=== PATIENT | male | born 1955 | race Caucasian/White ===

== ENCOUNTER 2020-04-26 05:59 | Day surgery (SDC) | payer OTHER ==
[2020-04-24 08:45] LABS: COVID AG,FIA SOURCE NASOPHARYNGEAL
[~2020-04-26] VITALS: Ht 188 cm; Wt 127.3 kg
[~2020-04-26 05:59] MED LIST: ALBU6.7H9 IH; ASPI-1444 PO; CHOL200016 PO; FAMO40TA7 PO; FLUT16H NASAL; FLUT220HFA IH; HYDR25TA PO; LISI40TA9 PO; MONT10TA32 PO
[2020-04-26] MEDS ORDERED: LIDOCAINE 2% 30 ML JELLY TP ONE (06:00)
[2020-04-26] MEDS ORDERED: LIDOCAINE 4% 50 ML SOLUTION TP ONE (06:00)
[2020-04-26] MEDS ORDERED: BENZOCAINE 20% 50 MCG/SPRAY 57 GM TP ONE (06:00)
[2020-04-26] MEDS ORDERED: ALBUTEROL SULFATE 2.5 MG/0.5 ML NEB SOLUTION NEB ONE (06:00)
[2020-04-26] MEDS ORDERED: SODIUM CHLORIDE 0.9% 1,000 ML IV ONE (06:30)
[2020-04-26] MEDS ORDERED: SODIUM CHLORIDE 0.9% 1,000 ML ONE (06:55)
[2020-04-26] MEDS ORDERED: MIDAZOLAM HCL 2 MG/2 ML VIAL ONE (08:02)
[2020-04-26] MEDS ORDERED: FentaNYL CITRATE PF 100 MCG/2 ML VIAL ONE (08:02)
[2020-04-26] MEDS ORDERED: MethylPREDNISolone SOD SUCC 125 MG/2 ML VIAL ONE (08:57)
[2020-04-26] MEDS ORDERED: MethylPREDNISolone SOD SUCC 125 MG/2 ML VIAL IVP ONE (09:00)
[2020-04-26] MEDS ORDERED: OXYGEN THERAPY IH SCH (20:00)
== END 2020-04-26 10:15 | disposition home or self-care (01) ==
LOC: SURGERY 05:59 → EDSEX 09:30 → SURGERY 10:15
PROVIDERS: ATTEND Internal Medicine Critical Care Medicine
DX: J38.4 Edema of larynx (principal); B37.0 Candidal stomatitis
CPT/HCPCS: 31623; 31624; 71045; 87070; 87101; 87206; 87220; 87426; 88184; 88185; C9803; J2250; J2930; J3010; J7030; 87015; 87205; 88108; 88312; J7613; Z7610